=== PATIENT | male | born 1980 | race Caucasian/White ===

== ENCOUNTER 2022-01-30 09:39 | Emergency (ER) | payer OTHER ==
[~2022-01-30] VITALS: Ht 188 cm; Wt 106.8 kg
[2022-01-30 09:57] VITALS: BP 128/77
[2022-01-30] MEDS ORDERED: GUAI400T92 PO (11:49)
== END 2022-01-30 15:01 | disposition home or self-care (01) ==
LOC: ER 09:39
DX: U07.1 COVID-19 (principal); Z79.899 Other long term (current) drug therapy
CPT/HCPCS: 71045; 87502; 87503; 87635; 93005; 99285; C9803